=== PATIENT | male | born 1990 ===

== ENCOUNTER 2017-06-20 22:51 | Emergency (ER) | payer SELFPAY ==
[2017-06-20 23:12] VITALS: O2SAT 100
--- NOTE | 2017-06-20 23:29 | ED PDOC ---
HPI: Abdomen Time Seen by Provider: 06/20/17 23:05 Chief Complaint (Nursing): Abdominal Pain Chief Complaint (Provider): RUQ pain History Per: Patient Additional Complaint(s): 27 yo male, no PMH, presents to ED with complaints of right upper quadrant pain x 2 days now. Pt notes pain is constant, waxing and waning in severity. Pain non radiating. no associated fever, chills, nausea, vomiting, diarrhea or constipation. Pt took Zantac without relief Past Medical History Reviewed: Nursing Documentation, Vital Signs Vital Signs: Last Vital Signs Temp 97.3 F L 06/20/17 23:09 Pulse 90 06/20/17 23:09 Resp 16 06/20/17 23:09 BP 129/87 06/20/17 23:09 Pulse Ox 100 06/20/17 23:29 - Medical History PMH: No Chronic Diseases - Surgical History Surgical History: No Surg Hx - Family History Family History: States: No Known Family Hx - Living Arrangements Living Arrangements: With Family - Social History Current smoker - smoking cessation education provided: No Ex-Smoker (has not smoked in the last 12 months): No Alcohol: None Drugs: Denies - Home Medications Home Medications: Ambulatory Orders Medication Instructions Recorded Dicyclomine [Bentyl] 10 mg PO QID PRN #10 cap 06/21/17 - Allergies Allergies/Adverse Reactions: Allergies Allergy/AdvReac Type Severity Reaction Status Date / Time No Known Allergies Allergy Verified 06/20/17 23:09 Review of Systems ROS Statement: Except As Marked, All Systems Reviewed And Found Negative Gastrointestinal: Positive for: Abdominal Pain Physical Exam - Reviewed Nursing Documentation Reviewed: Yes Vital Signs Reviewed: Yes - Physical Exam Appears: Positive for: Well, Non-toxic, No Acute Distress Head Exam: Positive for: ATRAUMATIC, NORMAL INSPECTION, NORMOCEPHALIC Skin: Positive for: Normal Color, Warm, DRY Eye Exam: Positive for: EOMI, Normal appearance, PERRL ENT: Positive for: Normal ENT Inspection Neck: Positive for: Normal, Painless ROM Cardiovascular/Chest: Positive for: Regular Rate, Rhythm Respiratory: Positive for: CNT, Normal Breath Sounds Gastrointestinal/Abdominal: Positive for: Bowel Sounds, Soft, Tenderness (mild RUQ. (-) Lima's sign) Back: Positive for: Normal Inspection Extremity: Positive for: Normal ROM Neurologic/Psych: Positive for: Alert, Oriented - Laboratory Results Result Diagrams: 06/20/17 23:45 06/20/17 23:45 - ECG O2 Sat by Pulse Oximetry: 100 Medical Decision Making Medical Decision Making: IV access established and treatment initiated with Toradol and IVF ON re-eval Pt asking for food. abdomen non tender and non distended Labs resulted and reviewed with Pt who demonstrated full understanding EXAM: US Abdomen Limited, Right Upper Quadrant CLINICAL HISTORY: 27 years old, male; Pain; Other: Ruq; Additional info: Ruq pain R/O cholelithiasis, cholecystitis TECHNIQUE: Real-time ultrasound of the right upper quadrant with image documentation. COMPARISON: No relevant prior studies available. FINDINGS: Liver: No acute abnormality as visualized. No mass. No intrahepatic bile duct dilation. Gallbladder: 2 small nonmobile echogenic foci measuring 5 mm and 4 mm, likely polyps. Common bile duct: No dilation. Pancreas: No acute abnormality as visualized. Right kidney: No acute abnormality as visualized. No hydronephrosis. Measured 10.5 cm. IMPRESSION: 2 small nonmobile echogenic foci in the gallbladder measuring 5 mm and 4 mm, likely polyps. Disposition - Clinical Impression Clinical Impression: Abdominal pain - Patient ED Disposition Is Patient to be Admitted: No - Disposition Disposition: Routine/Home Disposition Time: 02:12 Condition: STABLE Forms: [facility] (N[place]ian) - POA Present On Arrival: None
[2017-06-20 23:55] LABS: BASO % 0.4 % (0.0-2.0); EOS # 0.4 K/uL (0.0-0.7); EOS % 3.9 % (0.0-4.0); LYMPH # 4.3 K/uL (1.0-4.3); LYMPH % 43.7 % (20.0-40.0); MEAN CELL VOLUME 90.3 fl (80.0-94.0); MEAN CORPUSCULAR HEMOGLOBIN 30.2 pg (27.0-31.0); MEAN CORPUSCULAR HGB CONC 33.5 g/dL (33.0-37.0); MEAN PLATELET VOLUME 8.8 fl (7.2-11.7); MONO # 0.6 K/uL (0.0-0.8); MONO % 6.2 % (0.0-10.0); NEUT # 4.5 K/uL (1.8-7.0); NEUT % 45.8 % (50.0-75.0); RED CELL DISTRIBUTION WIDTH 13.2 % (11.5-14.5); WHITE BLOOD COUNT 9.9 K/uL (4.8-10.8)
[2017-06-21 00:13] LABS: ALKALINE PHOSPHATASE 81 U/L (38-126); ALT/SGPT 61 U/L (21-72); AMYLASE 106 U/L (30-110); AST/SGOT 34 U/L (17-59); BILIRUBIN,TOTAL 0.7 mg/dl (0.2-1.3); BLOOD UREA NITROGEN 15 mg/dl (9-20); CALCIUM 10.1 mg/dL (8.4-10.2); CARBON DIOXIDE 28 mmol/L (22-30); CHLORIDE 103 mmol/L (98-107); GFR AFRICAN-AMERICAN > 60; GLUCOSE,RANDOM 102 mg/dL (75-110); LIPASE 111 U/L (23-300); SODIUM 145 mmol/l (132-148)
[2017-06-21 00:20] LABS: ALB/GLOB RATIO 1.3 (1.0-2.1)
[2017-06-21 00:23] LABS: RBC URINE 1 /hpf (0-3); URINE BILIRUBIN NEGATIVE (NEGATIVE); URINE BLOOD NEGATIVE (NEGATIVE); URINE COLOR STRAW (YELLOW); URINE GLUCOSE (UA) NEG (Normal); URINE KETONE NEGATIVE (NEGATIVE); URINE LEUKOCYTE ESTERASE NEG Leu/uL (Negative); URINE PROTEIN NEGATIVE (NEGATIVE); URINE UROBILINOGEN 0.2-1.0 mg/dL (0.2-1.0); WBC URINE < 1 /hpf (0-5)
[2017-06-21 02:43] VITALS: BP 129/76; PULSE 84; RESP 17; TEMP 97.9
--- NOTE | 2017-06-21 10:36 | US ---
HISTORY: RUQ pain r/o cholelithiasis,cholecystitis COMPARISON: None. TECHNIQUE: Sonographic evaluation of the right upper quadrant of the abdomen. FINDINGS: LIVER: Liver measures approximately 14.2 cm in length. Smooth contour and normal echogenicity of the liver parenchyma. No mass. No intrahepatic bile duct dilatation. GALLBLADDER: There are 2 tiny echogenic foci which appear to be adherent along the gallbladder wall. Findings could represent small polyps or tiny calculi. . No evidence of sonographic Lima sign reported. COMMON BILE DUCT: Measures 4.4 mm. No stones. No dilatation. PANCREAS: Unremarkable as visualized. No mass. No ductal dilatation. RIGHT KIDNEY: Measures approximately 10.6 x 5.2 x 4.3 cm in length. Normal echogenicity. No calculus, mass, or hydronephrosis. AORTA: No aneurysmal dilatation. IVC: Unremarkable. OTHER FINDINGS: None . IMPRESSION: Two tiny echogenic foci which appear to be here along the gallbladder wall. Findings may represent gallbladder polyps or tiny calculi. . No evidence of sonographic Lima sign reported. .
== END 2017-06-21 02:35 | disposition home or self-care (01) ==
LOC: H.ER 22:51
DX: R10.9 Unspecified abdominal pain (principal)
CPT/HCPCS: 76705; 80053; 81003; 82150; 83690; 85025; 96374; 99283; J1885